=== PATIENT | male | born 1965 | race Caucasian/White ===

== ENCOUNTER 2024-10-28 13:24 | Outpatient (CLI) | payer BC | END 2024-10-28 13:25 | disposition home or self-care (01) | LOC: BICRAD 13:24 | PROVIDERS: ATTEND Chiropractor | DX: M25.512 Pain in left shoulder (principal); M77.12 Lateral epicondylitis, left elbow; M19.012 Primary osteoarthritis, left shoulder ==

== ENCOUNTER 2025-10-07 07:14 | Outpatient (CLI) | payer BC | END 2025-10-07 07:15 | disposition home or self-care (01) | LOC: SCSULT 07:14 | PROVIDERS: ATTEND Family Medicine | DX: E11.9 Type 2 diabetes mellitus without complications (principal); R74.8 Abnormal levels of other serum enzymes; R16.0 Hepatomegaly, not elsewhere classified; K76.0 Fatty (change of) liver, not elsewhere classified | CPT/HCPCS: 76700 ==